=== PATIENT | male | born 1950 | race Two or more races ===

== ENCOUNTER 2017-09-20 22:45 | Emergency (ER) | payer OTHER ==
[2017-09-20] MEDS ORDERED: ONDANSETRON 4 MG TAB.RAPDIS PO ONE (23:58)
[2017-09-20] MEDS ORDERED: NORMAL SALINE 1000 ML 1,000 ML IV ONE (23:58)
--- NOTE | 2017-09-21 | ER Document Report ---
ED General - General Chief Complaint: Nausea/Vomiting/Diarrhea Stated Complaint: VOMITING, DIARRHEA Time Seen by Provider: 09/20/17 23:52 Notes: Patient is a 67-year-old male that comes emergency department for chief complaint of vomiting and lightheadedness. He states that he was working this evening outside, he thinks he got overheated, he states he started vomiting over and over and became very lightheaded. He does not report any specific pain in his chest, shortness of breath, he denies fever or chills, he denies any locations of abdominal pain. He had a few loose stools as well. No hematochezia or hematemesis. He is on medications for high blood pressure and takes metformin for diabetes. He has had a hernia repair. He denies any other medical history. TRAVEL OUTSIDE OF THE [place] IN LAST 30 DAYS: No - Related Data Allergies/Adverse Reactions: aspirin Allergy (Verified 09/20/17 22:52) Past Medical History - General Information source: Patient - Social History Smoking Status: Current Every Day Smoker Drug Abuse: None Lives with: Family Family History: Reviewed & Not Pertinent - Past Medical History Cardiac Medical History: Reports: Hx Hypertension Endocrine Medical History: Reports: Hx Diabetes Mellitus Type 2 - Immunizations Hx Diphtheria, Pertussis, Tetanus Vaccination: Yes Review of Systems - Review of Systems Constitutional: See HPI EENT: No symptoms reported Cardiovascular: See HPI Respiratory: No symptoms reported Gastrointestinal: See HPI Genitourinary: No symptoms reported Male Genitourinary: No symptoms reported Musculoskeletal: No symptoms reported Skin: No symptoms reported Hematologic/Lymphatic: No symptoms reported Neurological/Psychological: No symptoms reported Physical Exam - Vital signs Vitals: Temp Pulse Resp BP Pulse Ox 98.0 F 88 20 106/64 98 09/20/17 23:03 09/20/17 23:03 09/20/17 23:03 09/20/17 23:03 09/20/17 23:03 - Notes Notes: GENERAL: Patient pale, diaphoretic HEAD: Normocephalic, atraumatic. EYES: Pupils equal, round, and reactive to light. Extraocular movements intact. ENT: Oral mucosa parched, tongue midline. NECK: Full range of motion. Supple. Trachea midline. LUNGS: Clear to auscultation bilaterally, no wheezes, rales, or rhonchi. No respiratory distress. HEART: Regular rate and rhythm. No murmur ABDOMEN: Soft, non-tender. Non-distended. Bowel sounds present in all 4 quadrants. EXTREMITIES: Moves all 4 extremities spontaneously. No edema, normal radial and dorsalis pedis pulses bilaterally. No cyanosis. BACK: no cervical, thoracic, lumbar midline tenderness. No saddle anesthesia, normal distal neurovascular exam. NEUROLOGICAL: Alert and oriented x3. Normal speech. [cranial nerves II through XII grossly intact]. PSYCH: Normal affect, normal mood. SKIN: Pale and diaphoretic Course - Re-evaluation Re-evalutation: Patient pale, soaked in sweat. States he feels lightheaded. Vital signs are unremarkable. Mucous membranes are very dry. His partner also has the same symptoms, patient does describe heat exhaustion. After IV fluids patient states he feels much improved, he is asking for water. He was provided with this. CBC shows leukocytosis and bandemia, chemistry shows elevated creatinine and BUN. Giving additional IV fluids. Labs trended, acute renal insufficiency resolved, surprisingly leukocytosis slightly increased , bandemia slightly increased. Urinalysis shows hematuria. Vital signs remained unremarkable. EKG sinus rhythm with no T-wave inversions or ST segment changes in consecutive leads. Troponin is normal. Discussed results with patient, recommend CAT scan imaging because of hematuria and abnormal workup, however he declines. His abdomen is very soft, lungs clear , vital signs are normal, and now patient is very normal in appearance, alert, well-appearing, denying any symptoms. Explained that his hematuria along with his history of smoking could indicate cancer, he could have some other undiagnosed pathology at this time, however he declines additional workup. He states he has a primary care provider, he asked for a copy of his urine, he states that he will follow up and get tested but he is ready to leave. Discussed with Dr. Breen. Patient discharged with follow-up recommendations and return precautions. - Vital Signs Vital signs: Temp Pulse Resp BP Pulse Ox 98.7 F 93 16 101/86 H 98 09/21/17 05:17 09/21/17 05:17 09/21/17 05:17 09/21/17 05:17 09/21/17 05:17 - Laboratory Result Diagrams: 09/21/17 03:07 09/21/17 03:07 Laboratory results interpreted by me: 06/01/2809/21/17 09/21/17 23:09 00:08 00:08 WBC 19.1 H RBC Hgb RDW 14.1 H Band Neutrophils % 16 H Lymphocytes % (Manual) 2 L Metamyelocytes % Abs Neuts (Manual) 17.8 H Absolute Eos (Manual) Chloride BUN 22 H Creatinine 1.42 H Est GFR (Non-Af Amer) 50 L Glucose 162 H POC Glucose 118 H Calcium 10.3 H Total Protein 10.0 H Urine Protein Urine Ketones Urine Blood 09/21/17 09/21/17 09/21/17 03:07 03:07 04:24 WBC 20.1 H RBC 4.24 L Hgb 13.4 L RDW 14.3 H Band Neutrophils % 21 H Lymphocytes % (Manual) 3 L Metamyelocytes % 1 H Abs Neuts (Manual) 17.7 H Absolute Eos (Manual) 0.8 H Chloride 109 H BUN 21 H Creatinine Est GFR (Non-Af Amer) Glucose 149 H POC Glucose Calcium Total Protein Urine Protein 30 H Urine Ketones TRACE H Urine Blood LARGE H Discharge - Discharge Clinical Impression: Dehydration Heat exhaustion Qualifiers: Encounter type: initial encounter Qualified Code(s): T67.5XXA - Heat exhaustion , unspecified, initial encounter Hematuria Qualifiers: Hematuria type: unspecified type Qualified Code(s): R31.9 - Hematuria, unspecified Condition: Stable Disposition: HOME, SELF-CARE Additional Instructions: Your workup is consistent with heat exhaustion and dehydration. Your workup also shows an abnormally high white blood cell count and shows blood in your urine. You must be rechecked in a close follow-up by primary care. The concern is that you might have an underlying cancer that is not diagnosed that needs to be found and treated. Return here if you develop any concerning symptoms including returned to dizziness, vomiting, fever, pain in her abdomen, shortness of breath, or any other concerning symptoms. Forms: Return to Work
[2017-09-21 00:41] LABS: HEMATOCRIT 44.8 % (37.9-51.0); HEMOGLOBIN 15.2 g/dL (13.5-17.0); MEAN CORPUSCULAR HEMOGLOBIN 31.9 pg (27.0-33.4); MEAN CORPUSCULAR HGB CONC 33.9 g/dL (32.0-36.0); MEAN CORPUSCULAR VOLUME 94 fl (80-97); PLATELET COUNT 246 10^3/uL (150-450); RED BLOOD COUNT 4.76 10^6/uL (4.35-5.55); RED CELL DISTRIBUTION WIDTH 14.1 % (11.5-14.0); WHITE BLOOD COUNT 19.1 10^3/uL (4.0-10.5)
[2017-09-21 00:51] LABS: ALANINE AMINOTRANSFERASE 29 U/L (21-72); ALBUMIN 4.9 g/dL (3.5-5.0); ALKALINE PHOSPHATASE 86 U/L (38-126); ANION GAP 17 (5-19); ASPARTATE AMINO TRANSFERASE 28 U/L (17-59); BILIRUBIN,DIRECT 0.4 mg/dL (0.0-0.4); BILIRUBIN,TOTAL 0.7 mg/dL (0.2-1.3); BLOOD UREA NITROGEN 22 mg/dL (7-20); CALCIUM 10.3 mg/dL (8.4-10.2); CARBON DIOXIDE 25 mmol/L (22-30); CHLORIDE 103 mmol/L (98-107); CREATINE KINASE 109 U/L (55-170); GLUCOSE 162 mg/dL (75-110); LIPASE 177.4 U/L (23-300); POTASSIUM 4.9 mmol/L (3.6-5.0)
[2017-09-21 00:52] LABS: ABSOLUTE LYMPHOCYTES# (MANUAL) 0.6 10^3/uL (0.5-4.7); ABSOLUTE MONOCYTES # (MANUAL) 0.6 10^3/uL (0.1-1.4); ABSOLUTE NEUTROPHILS# (MANUAL) 17.8 10^3/uL (1.7-8.2); BASOPHILS % (MANUAL) 0 % (0-2); EOSINOPHILS % (MANUAL) 1 % (0-6); LYMPHOCYTES % (MANUAL) 2 % (13-45); MONOCYTES % (MANUAL) 3 % (3-13); SEGMENTED NEUTROPHILS % (MAN) 77 % (42-78); TOTAL CELLS COUNTED 100
[2017-09-21 00:55] LABS: PLATELET COMMENT ADEQUATE; RBC MORPHOLOGY COMMENT NORMO-CYTIC/CHROMIC
[2017-09-21 00:56] LABS: BAND NEUTROPHILS % (MANUAL) 16 % (3-5)
[2017-09-21] MEDS ORDERED: NORMAL SALINE 1000 ML 1,000 ML IV ONE (01:07)
[2017-09-21 03:30] LABS: HEMATOCRIT 40.3 % (37.9-51.0); HEMOGLOBIN 13.4 g/dL (13.5-17.0); MEAN CORPUSCULAR HEMOGLOBIN 31.6 pg (27.0-33.4); MEAN CORPUSCULAR HGB CONC 33.3 g/dL (32.0-36.0); MEAN CORPUSCULAR VOLUME 95 fl (80-97); PLATELET COUNT 213 10^3/uL (150-450); RED BLOOD COUNT 4.24 10^6/uL (4.35-5.55); RED CELL DISTRIBUTION WIDTH 14.3 % (11.5-14.0); WHITE BLOOD COUNT 20.1 10^3/uL (4.0-10.5)
[2017-09-21 03:56] LABS: ANION GAP 14 (5-19); BLOOD UREA NITROGEN 21 mg/dL (7-20); CALCIUM 8.7 mg/dL (8.4-10.2); CARBON DIOXIDE 22 mmol/L (22-30); CHLORIDE 109 mmol/L (98-107); GLUCOSE 149 mg/dL (75-110); POTASSIUM 4.3 mmol/L (3.6-5.0); SODIUM 144.7 mmol/L (137-145)
[2017-09-21 04:12] LABS: ABSOLUTE LYMPHOCYTES# (MANUAL) 0.6 10^3/uL (0.5-4.7); ABSOLUTE NEUTROPHILS# (MANUAL) 17.7 10^3/uL (1.7-8.2); BAND NEUTROPHILS % (MANUAL) 21 % (3-5); BASOPHILS % (MANUAL) 0 % (0-2); EOSINOPHILS % (MANUAL) 4 % (0-6); LYMPHOCYTES % (MANUAL) 3 % (13-45); METAMYELOCYTES % (MANUAL) 1 % (0); MONOCYTES % (MANUAL) 5 % (3-13); SEGMENTED NEUTROPHILS % (MAN) 66 % (42-78); TOTAL CELLS COUNTED 100
[2017-09-21 04:14] LABS: PLATELET COMMENT ADEQUATE; RBC MORPHOLOGY COMMENT NORMO-CYTIC/CHROMIC
[2017-09-21 04:45] LABS: APPEARANCE,URINE SLIGHTLY-CLOUDY; BILIRUBIN,URINE NEGATIVE (NEGATIVE); COLOR,URINE YELLOW; GLUCOSE, URINE NEGATIVE (NEGATIVE); KETONES,URINE TRACE mg/dL (NEGATIVE); LEUKOCYTE ESTERASE,URINE NEGATIVE (NEGATIVE); NITRITE,URINE NEGATIVE (NEGATIVE); PROTEIN,URINE 30 mg/dL (NEGATIVE); URINE SPECIFIC GRAVITY 1.013; UROBILINOGEN,URINE NEGATIVE mg/dL (<2.0)
[2017-09-21 05:19] VITALS: BP 101/86
--- NOTE | 2017-09-21 07:47 | EKG REPORT ---
SEVERITY:- NORMAL ECG - SINUS RHYTHM : Confirmed by: Erlin Menendez MD 21-Sep-2017 07:46:42
[2017-09-22 08:23] LABS: PATH REVIEW PATHOLOGIST REVIEWED
== END 2017-09-21 05:17 | disposition home or self-care (01) ==
LOC: ER 22:45
DX: T67.5XXA Heat exhaustion, unspecified, initial encounter (principal); E86.0 Dehydration; X30.XXXA Exposure to excessive natural heat, initial encounter; Y99.0 Civilian activity done for income or pay; R31.9 Hematuria, unspecified; D72.825 Bandemia; R11.2 Nausea with vomiting, unspecified; R19.7 Diarrhea, unspecified; R42 Dizziness and giddiness; E11.9 Type 2 diabetes mellitus without complications; Z79.84 Long term (current) use of oral hypoglycemic drugs; I10 Essential (primary) hypertension; Z79.899 Other long term (current) drug therapy; F17.200 Nicotine dependence, unspecified, uncomplicated
CPT/HCPCS: 93005; 99284; 96360; 96361; 36415; 82962; 82550; 83690; 85025; 80048; 80053; 81001; 84484; 93010; S0119; J7030